=== PATIENT | male | born 1940 | race Caucasian/White ===

== ENCOUNTER 2023-07-06 17:27 | Emergency (ER) | payer OTHER ==
--- NOTE | 2023-07-06 18:06 | RAD REPORT ---
EXAM DESCRIPTION: RAD - Chest Single View - 07/06/2023 5:53 pm CLINICAL HISTORY: COUGH Chest pain. COMPARISON: No comparisons FINDINGS: Portable technique limits examination quality. Mild interstitial pulmonary edema is seen. The heart is mildly prominent. Sternotomy wires present. A ortic atherosclerosis. Right-sided PICC line has tip in the right atrium. IMPRESSION: Mild CHF.
[2023-07-06 18:25] LABS: Absolute Basophils 0.1 K/uL (0-0.5); Absolute Eosinophils 0.1 K/uL (0-0.5); Absolute Lymphocytes (CBC) 0.7 K/uL (0.7-4.9); Absolute Monocytes 0.8 K/uL (0.1-1.3); Basophils % 0.8 % (0-1.3); Eosinophils % 1.6 % (0-4.4); Hematocrit 33.4 % (39.6-49.0); Hemoglobin 11.5 g/dL (13.6-17.9); MCHC 34.4 g/dL (32.0-36.0); MCV 84.2 fL (80-100); MPV 6.9 fL (7.6-11.3); Monocytes % 11.6 % (3.3-12.3); Platelets 270 thou/uL (152-406); RBC Red Blood Cell Count 3.97 M/uL (4.33-5.43); Red Cell Distribution Width 15.5 % (12.1-15.2)
[2023-07-06] MEDS ORDERED: FAMOTIDINE 20 MG/2 ML VIAL IV ONE (18:33)
[2023-07-06] MEDS ORDERED: NA CHLORIDE 0.9% 100 ML ONE (18:33)
[2023-07-06 18:34] LABS: PT Prothrombin Time 17.6 SECONDS (9.5-12.5); Protime INR 1.62
[2023-07-06] MEDS ORDERED: NA CHLORIDE 0.9% 2,000 ML ONE (18:34)
[2023-07-06] MEDS ORDERED: PIPERACIL/TAZO 3.375 GM VIAL IV ONE (18:34)
[2023-07-06 18:39] LABS: SARS-CoV-2 Antigen CONTROL BLUE LINE VIS/BG OK; SARS-CoV-2 Antigen Rapid Res Negative (Negative)
[2023-07-06 18:45] LABS: Albumin 2.7 g/dL (3.4-5.0); Albumin/Globulin Ratio 0.5 (1.1-1.8); Anion Gap 11.1 mEq/L (5.0-15.0); Bilirubin Direct 1.1 mg/dL (0-0.2); Bilirubin Indirect, Calculated 0.7 mg/dL (0.2-0.8); Bilirubin Total 1.8 mg/dL (0.2-1.0); Globulin 5.6 g/dL (2.3-3.5); Potassium 4.1 mEq/L (3.5-5.1); Protein, Total 8.3 g/dL (6.4-8.2)
[2023-07-06 18:55] LABS: Troponin High Sensitivity 66.4 pg/mL (<58.9)
--- NOTE | 2023-07-06 19:20 | RAD REPORT ---
EXAM DESCRIPTION: US - Extrem Venous W Compress Esteban - 07/06/2023 7:05 pm CLINICAL HISTORY: PAIN Bilateral leg edema and swelling. COMPARISON: No comparisons TECHNIQUE: Real-time sonographic interrogation of the left and right lower extremity deep venous sys tems was performed. FINDINGS: Normal compressibility, flow augmentation, phasic flow and spontaneous flow is identified in both the left and right lower extremity deep venous systems. IMPRESSION: No sonographic evidence of left or right lower extremity deep venous thrombosis.
--- NOTE | 2023-07-06 19:40 | RAD REPORT ---
EXAM DESCRIPTION: CT - Chest For Pe Angio - 07/06/2023 7:31 pm CLINICAL HISTORY: Chest pain. Cough;Fever;PE COMPARISON: No comparisons TECHNIQUE: CT angiogram of the pulmonary arteries was performed with MIP. All CT scans are performed using dose optimization technique as appropriate and may include automated exposure control or mA/KV adjustment according to patient size. FINDINGS: No evidence of pulmonary thromboembolism. No acute aortic finding demonstrated. The lungs appear emphysematous with mild atelectasis in both lung bases. No significant pericardial or pleural fluid. Small hernia. No concerning bony finding. IMPRESSION: No evidence of pulmonary thromboembolism. COPD.
--- NOTE | 2023-07-06 19:42 | RAD REPORT ---
EXAM DESCRIPTION: CTAbdomen Pelvis W Contrast - 07/06/2023 7:31 pm CLINICAL HISTORY: Abdominal pain. ABD PAIN COMPARISON: Chest For Pe Angio dated 07/06/2023 TECHNIQUE: Biphasic CT imaging of the abdomen and pelvis was performed with 100 ml non-ionic IV cont rast. All CT scans are performed using dose optimization technique as appropriate and may include automated exposure control or mA/KV adjustment according to patient size. FINDINGS: The lung bases are clear.Small hiatal hernia. The liver, spleen, pancreas, adrenal glands and kidneys are within normal limits. Benign 21 mm left r enal cyst. Pigtail drain is present gallbladder fossa with very little fluid present. No bowel obstruction, free air, free fluid or abscess. Prominent sigmoid diverticulosis coli without diverticulitis. The appendix is normal. No evidence of significant lymphadenopathy. No suspicious bony findings. Mild lower lumbar degenerative IMPRESSION: No acute intra-abdominal or pelvic finding. Percutaneous drain is seen the gallbladder fossa with very little fluid present in the fossa. Sigmoid diverticulosis coli without diverticulitis there
--- NOTE | 2023-07-06 20:28 | EDPHYS ---
Physician Documentation [facility] Name: Harvey Byrd Age: 83 yrs Sex: Male : 1940 Arrival Date: 07/06/2023 Time: 17:27 Bed 9 Private MD: ED Physician Rancho Del Cid HPI: 07/05 17:43 This 83 yrs old Male presents to ER via EMS with complaints of Knee Pain, Hip ross Pain. 17:43 The patient or guardian reports decreased range of motion, pain. that occurred ross sustained from unknown reason, There is no obvious deformity. Historical: - Allergies: 17:34 No Known Allergies; cp4 - Immunization history:: Adult Immunizations up to date. - Infectious Disease History:: Denies. CDIFF, C. Auris, ESBL, MRSA (w/in 1 year), VRE (w/in 1 year), TB, . - Social history:: Smoking status: Patient denies any tobacco usage or history of. ROS: 17:45 Eyes: Negative for injury, pain, redness, and discharge, ENT: Negative for injury, ross pain, and discharge, Neck: Negative for injury, pain, and swelling, Cardiovascular: Negative for chest pain, palpitations, and edema, Respiratory: Negative for shortness of breath, cough, wheezing, and pleuritic chest pain, Back: Negative for injury and pain, : Negative for injury, bleeding, discharge, and swelling, Skin: Negative for injury, rash, and discoloration, Neuro: Negative for headache, weakness, numbness, tingling, and seizure, Psych: Negative for depression, anxiety, suicide ideation, homicidal ideation, and hallucinations, Allergy/Immunology: Negative for hives, rash, and allergies, Endocrine: Negative for neck swelling, polydipsia, polyuria, polyphagia, and marked weight changes, Hematologic/Lymphatic: Negative for swollen nodes, abnormal bleeding, and unusual bruising, 17:45 Constitutional: Positive for body aches, chills, fatigue, fever, 17:45 Abdomen/GI: Positive for abdominal pain, of the epigastric area and right upper quadrant, 17:45 MS/extremity: Positive for decreased range of motion, pain, swelling, tenderness, of the right leg, Exam: 17:46 Head/Face: Normocephalic, atraumatic. Eyes: Pupils equal round and reactive to light, ross extra-ocular motions intact. Lids and lashes normal. Conjunctiva and sclera are non-icteric and not injected. Cornea within normal limits. Periorbital areas with no swelling, redness, or edema. ENT: Nares patent. No nasal discharge, no septal abnormalities noted. Tympanic membranes are normal and external auditory canals are clear. Oropharynx with no redness, swelling, or masses, exudates, or evidence of obstruction, uvula midline. Mucous membranes moist. Neck: Trachea midline, no thyromegaly or masses palpated, and no cervical lymphadenopathy. Supple, full range of motion without nuchal rigidity, or vertebral point tenderness. No Meningismus. Chest/axilla: Normal chest wall appearance and motion. Nontender with no deformity. No lesions are appreciated. Cardiovascular: Regular rate and rhythm with a normal S1 and S2. No gallops, murmurs, or rubs. Normal PMI, no JVD. No pulse deficits. Respiratory: Lungs have equal breath sounds bilaterally, clear to auscultation and percussion. No rales, rhonchi or wheezes noted. No increased work of breathing, no retractions or nasal flaring. Back: No spinal tenderness. No costovertebral tenderness. Full range of motion. Male : Normal genitalia with no discharge or lesions. Skin: Warm, dry with normal turgor. Normal color with no rashes, no lesions, and no evidence of cellulitis. Neuro: Awake and alert, GCS 15, oriented to person, place, time, and situation. Cranial nerves II-XII grossly intact. Motor strength 5/5 in all extremities. Sensory grossly intact. Cerebellar exam normal. Normal gait. Psych: Awake, alert, with orientation to person, place and time. Behavior, mood, and affect are within normal limits. 17:46 Cardiovascular: Rate: bradycardic, actual rate is 54 bpm, Rhythm: regular, Pulses: Pulses are 4+ in bilateral radial, brachial, femoral, popliteal, posterior tibial and and dorsalis pedis arteries.. Heart sounds: normal, Edema: is not appreciated, JVD: is not appreciated, 17:46 Abdomen/GI: Inspection: abdomen appears normal, Bowel sounds: normal, Palpation: moderate abdominal tenderness, in the epigastric area, right upper quadrant and left upper quadrant, Liver: no appreciated palpable abnormalities, Hernia: not appreciated, 17:46 Musculoskeletal/extremity: ROM: limited active range of motion due to pain, limited passive range of motion due to pain, in the right leg, Circulation is intact in all extremities. Sensation intact. Compartment Syndrome exam of affected extremity: is normal. DVT Exam: negative Homans' sign noted on exam, no appreciated bluish discoloration, no erythema, pain, swelling, tenderness, increased warmth, 18:35 ECG was reviewed by the Attending Physician. ross 20:38 Musculoskeletal/extremity: Joints: painful range of motion, left knee not red, normal ross passive rom, no effusion, 21:48 Musculoskeletal/extremity: Weight bearing: is unable to bear weight, pain on rom ross appears to be in the right thigh, with some pain right hip and knee also with mild pain. Vital Signs: 17:32 BP 128 / 72; Pulse 54; Resp 18; Temp 99.4; Pulse Ox 96% ; Weight 108.86 kg; Height 5 cp4 ft. 11 in. ; 18:30 BP 138 / 91; Pulse 81; Resp 18; Pulse Ox 99% ; cp4 19:30 BP 114 / 59; Pulse 84; Resp 18; Pulse Ox 97% ; cp4 20:25 BP 130 / 68; Pulse 84; Resp 18; Pulse Ox 97% ; cp4 21:43 Temp 98.3; cp4 21:44 BP 121 / 72; Pulse 84; Resp 18; Pulse Ox 98% ; cp4 23:09 BP 133 / 58; Pulse 88; Resp 18; Temp 97.8(TE); Pulse Ox 98% ; vc1 17:32 Body Mass Index 33.47 (108.86 kg, 180.34 cm) cp4 [place] Coma Score: 17:46 Eye Response: spontaneous(4). Motor Response: obeys commands(6). Verbal Response: ross oriented(5). Total: 15. MDM: 17:31 Patient medically screened. ross 17:48 Differential diagnosis: contusion, viral Infection, bacterial infection, URI, ross bronchitis, pneumonia UTI. Data reviewed: vital signs, nurses notes, EMS record, lab test result(s), EKG, radiologic studies, CT scan, doppler, plain films. Consideration of Admission/Observation Escalation of care including admission/observation considered. I considered the following discharge prescriptions or medication management in the emergency department Medications were administered in the Emergency Department. See MAR. Test considered but Not performed: Ultrasound no abd usg. 07/05 17:40 Order name: Basic Metabolic Panel; Complete Time: 20:15 07/05 17:40 Order name: CBC with Diff; Complete Time: 20:15 07/05 17:40 Order name: LFT's; Complete Time: 20:15 07/05 17:40 Order name: Magnesium; Complete Time: 20:15 07/05 17:40 Order name: NT PRO-BNP; Complete Time: 20:15 07/05 17:40 Order name: PT-INR; Complete Time: 20:15 07/05 17:40 Order name: Troponin HS; Complete Time: 20:15 07/05 17:40 Order name: Lipase; Complete Time: 20:15 07/05 17:40 Order name: Blood Culture Adult (2) 07/05 17:40 Order name: Lactate w/ 2H reflex if indic.; Complete Time: 20:15 07/05 17:40 Order name: Flu; Complete Time: 20:15 07/05 17:40 Order name: SARS RAPID; Complete Time: 20:15 07/05 17:40 Order name: Urinalysis w/ reflexes; Complete Time: 20:46 07/05 17:40 Order name: XRAY Chest (1 view); Complete Time: 20:15 07/05 17:40 Order name: CT Chest For PE Angio; Complete Time: 20:15 07/05 17:40 Order name: CT Abd/Pelvis - IV Contrast Only; Complete Time: 20:15 07/05 17:40 Order name: US Extremity Venous W Compression Esteban; Complete Time: 20:15 07/05 21:35 Order name: Femur Right XRAY 07/05 17:40 Order name: Cardiac monitoring; Complete Time: 18:15 07/05 17:40 Order name: EKG - Nurse/Tech; Complete Time: 18:32 07/05 17:40 Order name: IV Saline Lock; Complete Time: 18:15 07/05 17:40 Order name: Labs collected and sent; Complete Time: 18:15 07/05 17:40 Order name: O2 Per Protocol; Complete Time: 18:15 07/05 17:40 Order name: O2 Sat Monitoring; Complete Time: 18:15 ross EC:35 Rate is 96 beats/min. Rhythm is regular. QRS [place] is Normal. RI interval is normal. QRS ross interval is normal. QT interval is prolonged at 530 msec. No Q waves. T waves are Normal. No ST changes noted. Clinical impression: NSR w/ Non-specific ST/T Changes and No evidence of ischemia. Interpreted by me. Reviewed by me. Administered Medications: 17:49 Not Given (Duplicate Order): [id number] mg PO once cp4 18:44 Drug: Piperacillin-Tazobactam IVPB 3.375 grams IVPB once over 60 mins; (mix in NS 100 cp4 mL) Route: IVPB; Infused Over: 60 mins; Site: left antecubital; 19:45 Follow up: Response: No adverse reaction; IV Status: Completed infusion cp4 18:44 Drug: NS 0.9% IV 1000 ml IV at 1 bolus Per protocol; 1000 mL bolus Route: IV; Rate: 1 cp4 bolus; Site: left antecubital; 20:22 Follow up: Response: No adverse reaction; IV Status: Completed infusion cp4 18:45 Drug: NS 0.9% IV 1000 ml IV at 1 bolus Per protocol; 1000 mL bolus Route: IV; Rate: 1 cp4 bolus; Site: left antecubital; 20:23 Follow up: Response: No adverse reaction; IV Status: Completed infusion cp4 18:45 Drug: Famotidine IVP 20 mg IVP once; dilute with 10 mL 0.9% NaCl; give over 2 minutes cp4 Route: IVP; Site: left antecubital; 20:23 Follow up: Response: No adverse reaction cp4 20:40 Drug: vancoMYCIN IVPB 1 grams IVPB once over 2 hrs Route: IVPB; Infused Over: 2 hrs; cp4 Site: left antecubital; 21:16 Drug: morphine IVP or IV 4 mg IVP once over 4 mins Route: IVP; Infused Over: 4 mins; cp4 Site: left antecubital; 21:16 Drug: Ondansetron IVP 4 mg IVP once; over 2 minutes Route: IVP; Site: left antecubital; cp4 21:43 Not Given (Duplicate Order; EMS gave 1G tylenol prior to arrivall): [id number] mg cp4 PO once 23:35 Drug: morphine IVP or IV 4 mg IVP once over 4 mins Route: IVP; Infused Over: 4 mins; vc1 Site: left antecubital; 23:35 Follow up: Response: Medication administered at discharge. 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 EDMS EDMS 17:41 17:40 CBC+H.LAB.BRZ ordered. EDMS EDMS 17:41 17:40 HEPATIC FUNCTION+C.LAB.BRZ ordered. EDMS EDMS 17:41 17:40 MAGNESIUM+C.LAB.BRZ ordered. EDMS EDMS 17:41 17:40 PROBNP+C.LAB.BRZ ordered. EDMS EDMS 17:41 17:40 PROTIME (+INR)+COAG.LAB.BRZ ordered. EDMS EDMS 17:41 17:40 Troponin High Sensitivity+C.LAB.BRZ ordered. EDMS EDMS 17:41 17:40 LIPASE+C.LAB.BRZ ordered. EDMS EDMS 17:41 17:40 BLOOD CULTURE*+BA.LAB.BRZ ordered. EDMS EDMS 17:41 17:40 LACTATE+C.LAB.BRZ ordered. EDMS EDMS 17:41 17:40 Influenza Screen (A \T\ B)+BA.LAB.BRZ ordered. EDMS EDMS 17:41 17:40 SARS-COV-2 Antigen Rapid+I.LAB.BRZ ordered. EDMS EDMS 17:41 17:40 Urinalysis+U.LAB.BRZ ordered. EDMS EDMS 17:41 17:41 Chest Single View+RAD.RAD.BRZ ordered. EDMS EDMS 17:41 17:41 Chest For PE Angio+CT.RAD.BRZ ordered. EDMS EDMS 17:41 17:41 Abdomen Pelvis W Con+CT.RAD.BRZ ordered. EDMS EDMS 17:41 17:41 Extrem Venous W Compression Esteban+US.RAD.BRZ ordered. EDMS EDMS 20:31 [facility] ross 20:44 20:31 to [facility] ross ross 21:12 20:44 to [facility] ross ross 23:35 23:31 Ondansetron IVP 4 mg IVP once; over 2 minutes ordered. sp4 vc1 23:36 21:12 to [facility] ross vc1
--- NOTE | 2023-07-06 20:28 | ER ---
Nurse's Notes [facility] Name: Harvey Byrd Age: 83 yrs Sex: Male : 1940 Arrival Date: 07/06/2023 Time: 17:27 Bed 9 Private MD: Diagnosis: Fever, unspecified;Pain in right leg-hip, knee;Epigastric abdominal tenderness-percutaneous drain gallbladder;Hypo-osmolality and hyponatremia;MCC (current) use of anticoagulants;Abnormal serum enzyme level, unspecified-elevated troponin Presentation: 07/05 17:32 Chief complaint: Patient states: right hip and knee pain that started last night. cp4 Coronavirus screen: Client denies travel out of the [place] in the last 14 days. Client indicates they have traveled out of the [place] in the last 14 days. At this time, unable to obtain information related to travel outside the [place] Ebola Screen: Patient negative for fever greater than or equal to 101.5 degrees Fahrenheit, and additional compatible Ebola Virus Disease symptoms Patient denies exposure to infectious person. Patient denies travel to an Ebola-affected area in the 21 days before illness onset. No symptoms or risks identified at this time. Initial Sepsis Screen: Does the patient meet any 2 criteria? No. Patient's initial sepsis screen is negative. Does the patient have a suspected source of infection? No. Patient's initial sepsis screen is negative. Risk Assessment: Do you want to hurt yourself or someone else? Patient reports no desire to harm self or others. Onset of symptoms was July 05, 2023. 17:32 Method Of Arrival: EMS: [facility] 17:32 Acuity: ROXY 3 cp4 Triage Assessment: 17:34 General: Appears uncomfortable, Behavior is calm, cooperative, appropriate for age. cp4 Pain: Complains of pain in right hip, right knee Pain currently is 5 out of 10 on a pain scale. Musculoskeletal: Reports pain in right hip, right knee. Historical: - Allergies: 17:34 No Known Allergies; cp4 - Immunization history:: Adult Immunizations up to date. - Infectious Disease History:: Denies. CDIFF, C. Auris, ESBL, MRSA (w/in 1 year), VRE (w/in 1 year), TB, . - Social history:: Smoking status: Patient denies any tobacco usage or history of. Screenin:36 [facility] ED Fall Risk Assessment (Adult) History of falling in the last 3 months, cp4 including since admission No falls in past 3 months (0 pts) Confusion or Disorientation No (0 pts) Intoxicated or Sedated No (0 pts) Impaired Gait No (0 pts) Mobility Assist Device Used No (0 pt) Altered Elimination No (0 pt) Score/Fall Risk Level 0 - 2 = Low Risk Oriented to surroundings, Maintained a safe environment, Assessed \T\ reinforced patient's understanding of fall precautions, Hourly rounding (assess needs \T\ fall precautionary measures) done. Abuse screen: Denies threats or abuse. Nutritional screening: No deficits noted. Tuberculosis screening: No symptoms or risk factors identified. Assessment: 17:36 Reassessment: No changes from previously documented assessment. cp4 23:06 General: Appears in no apparent distress. uncomfortable, Behavior is calm, cooperative, vc1 appropriate for age. Pain: Complains of pain in right leg and right upper quadrant. Neuro: Level of Consciousness is awake, alert, obeys commands, Oriented to person, place, time, situation, Appropriate for age. Cardiovascular: Capillary refill Patient's skin is warm and dry. Respiratory: Airway is patent Respiratory effort is even, unlabored, Respiratory pattern is regular, symmetrical. GI: gallbladder drain. : No deficits noted. No signs and/or symptoms were reported regarding the genitourinary system. EENT: No deficits noted. No signs and/or symptoms were reported regarding the EENT system. Derm: Skin is intact, is healthy with good turgor, Skin is dry. Musculoskeletal: Reports pain in right knee. 23:08 Reassessment: report given to ALYSSIA Ku at [facility]. vc1 Vital Signs: 17:32 BP 128 / 72; Pulse 54; Resp 18; Temp 99.4; Pulse Ox 96% ; Weight 108.86 kg; Height 5 cp4 ft. 11 in. ; 18:30 BP 138 / 91; Pulse 81; Resp 18; Pulse Ox 99% ; cp4 19:30 BP 114 / 59; Pulse 84; Resp 18; Pulse Ox 97% ; cp4 20:25 BP 130 / 68; Pulse 84; Resp 18; Pulse Ox 97% ; cp4 21:43 Temp 98.3; cp4 21:44 BP 121 / 72; Pulse 84; Resp 18; Pulse Ox 98% ; cp4 23:09 BP 133 / 58; Pulse 88; Resp 18; Temp 97.8(TE); Pulse Ox 98% ; vc1 17:32 Body Mass Index 33.47 (108.86 kg, 180.34 cm) cp4 [place] Coma Score: 17:46 Eye Response: spontaneous(4). Motor Response: obeys commands(6). Verbal Response: ross oriented(5). Total: 15. ED Course: 16:08 Initial lab(s) drawn, by me, sent to lab. First set of blood cultures drawn by me. cp4 17:30 Patient arrived in ED. cp4 17:31 Rancho Del Cid MD is Attending Physician. [facility] 17:31 Monse Jackson is Primary Nurse. cp4 17:34 Triage completed. cp4 17:34 Arm band placed on right wrist. Patient placed in an exam room, on a stretcher. cp4 17:36 Bed in low position. Call light in reach. Side rails up X2. cp4 17:55 XRAY Chest (1 view) In Process Unspecified. EDMS 18:14 Inserted saline lock: 20 gauge in left antecubital area, using aseptic technique. Blood cp4 collected. 18:15 Lactate w/ 2H reflex if indic. Sent. cp4 18:15 Blood Culture Adult (2) Sent. cp4 18:15 Lipase Sent. cp4 18:15 Basic Metabolic Panel Sent. cp4 18:15 CBC with Diff Sent. cp4 18:15 LFT's Sent. cp4 18:15 Magnesium Sent. cp4 18:15 NT PRO-BNP Sent. cp4 18:15 PT-INR Sent. cp4 18:15 Troponin HS Sent. cp4 18:31 EKG done, by ED staff, reviewed by Rancho Del Cid MD. cp4 18:54 Notified ED physician of a critical lab result(s). troponin 66.4. ap3 19:07 US Extremity Venous W Compression Esteban In Process Unspecified. EDMS 19:33 CT Chest For PE Angio In Process Unspecified. EDMS 19:33 CT Abd/Pelvis - IV Contrast Only In Process Unspecified. EDMS 20:39 Gall bladder tube. cp4 22:24 Femur Right XRAY In Process Unspecified. EDMS 23:36 Provided Education on: NPO. vc1 23:36 No provider procedures requiring assistance completed. Patient transferred, IV remains vc1 in place. Administered Medications: 17:49 Not Given (Duplicate Order): [id number] mg PO once cp4 18:44 Drug: Piperacillin-Tazobactam IVPB 3.375 grams IVPB once over 60 mins; (mix in NS 100 cp4 mL) Route: IVPB; Infused Over: 60 mins; Site: left antecubital; 19:45 Follow up: Response: No adverse reaction; IV Status: Completed infusion cp4 18:44 Drug: NS 0.9% IV 1000 ml IV at 1 bolus Per protocol; 1000 mL bolus Route: IV; Rate: 1 cp4 bolus; Site: left antecubital; 20:22 Follow up: Response: No adverse reaction; IV Status: Completed infusion cp4 18:45 Drug: NS 0.9% IV 1000 ml IV at 1 bolus Per protocol; 1000 mL bolus Route: IV; Rate: 1 cp4 bolus; Site: left antecubital; 20:23 Follow up: Response: No adverse reaction; IV Status: Completed infusion cp4 18:45 Drug: Famotidine IVP 20 mg IVP once; dilute with 10 mL 0.9% NaCl; give over 2 minutes cp4 Route: IVP; Site: left antecubital; 20:23 Follow up: Response: No adverse reaction cp4 20:40 Drug: vancoMYCIN IVPB 1 grams IVPB once over 2 hrs Route: IVPB; Infused Over: 2 hrs; cp4 Site: left antecubital; 21:16 Drug: morphine IVP or IV 4 mg IVP once over 4 mins Route: IVP; Infused Over: 4 mins; cp4 Site: left antecubital; 21:16 Drug: Ondansetron IVP 4 mg IVP once; over 2 minutes Route: IVP; Site: left antecubital; cp4 21:43 Not Given (Duplicate Order; EMS gave 1G tylenol prior to arrivall): [id number] mg cp4 PO once 23:35 Drug: morphine IVP or IV 4 mg IVP once over 4 mins Route: IVP; Infused Over: 4 mins; vc1 Site: left antecubital; 23:35 Follow up: Response: Medication administered at discharge. vc1 23:35 CANCELLED (pt transferredd): ondansetron 4 mg IVP once; over 2 minutes vc1 Medication: 17:36 VIS not applicable for this client. cp4 Intake: 20:39 Tubes: 300ml (); Total: 300ml. cp4 Outcome: 20:27 ER care complete, transfer ordered by MD. hawkins 23:36 Transferred by ground EMS to other acute care facility: [facility]. Transfer vc1 form completed. X-rays sent w/ patient. 23:36 Condition: stable 23:36 Instructed on the need for transfer, 23:36 Patient left the ED. vc1 Signatures: Dispatcher [employer] EDMS Rancho Del Cid MD MD cha Prokisch, Amanda RN RN ap3 Ruba Boswell RN RN vc1 Monse Jackson cp4
[2023-07-06] MEDS ORDERED: VANCOMYCIN 1 GM/VIAL ONE (20:30)
[2023-07-06] MEDS ORDERED: NA CHLORIDE 0.9% 250 ML ONE (20:30)
[2023-07-06 20:44] LABS: Specific Gravity 1.025 (1.005-1.030); Sqamous Epithelial None Seen /HPF (None Seen); Urine Bacteria <20 /HPF (<20); Urine Bilirubin NEGATIVE (Negative); Urine Blood 2+ (Negative); Urine Clarity Extremely Turbid (Clear); Urine Color Yellow (Yellow); Urine Culture Reflex Order NOT NEEDED; Urine Glucose NEGATIVE (Negative); Urine Ketones NEGATIVE (Negative); Urine Microscopic Reflex YN ORDER UMIC; Urine Mucus 1+ /HPF (None Seen); Urine Nitrite NEGATIVE (Negative); Urine Protein 1+ (Negative); Urine RBC <5 /HPF (None Seen); Urine Urobilinogen Normal (Normal)
[2023-07-06] MEDS ORDERED: ONDANSETRON 4 MG/2 ML VIAL ONE (21:09)
[2023-07-06] MEDS ORDERED: MORPHINE 4 MG/ML SYR ONE ×2 (21:10→23:32)
--- NOTE | 2023-07-06 22:30 | RAD REPORT ---
EXAM DESCRIPTION: RAD - Femur Right - 07/06/2023 10:22 pm CLINICAL HISTORY: PAIN COMPARISON: No comparisons FINDINGS: Diffuse osteopenia is seen. Right total knee arthroplasty is noted. Atherosclerosis. No ac lizeth fracture or dislocation.
[2023-07-06 23:49] VITALS: BP 133/58; TEMP 97.8; O2SAT 98
--- NOTE | 2023-07-07 13:08 | EKG ---
Test Date: 2023-07-06 Test Time: 18:29:04 [employer] Interpretive Specialist: ALEX MEASUREMENT RESULTS: Intervals: Rate: 96 WI: 140 QRSD: 80 QT: 420 QTc: 530 Krypton: P: 26 WI: 140 QRS: -6 T: -23 INTERPRETIVE STATEMENTS: Sinus rhythm and premature ventricular complexes or fusion complexes Left ventricular hypertrophy with repolarization abnormality Prolonged QT Abnormal ECG Compared to ECG 07/06/2023 18:25:13 Fusion complex(es) now present Left ventricular hypertrophy now present Early repolarization now present ST (T wave) deviation no longer present Possible ischemia no longer present Electronically Signed On 07-07-23 13:05:41 CDT by Maxi Painting
--- NOTE | 2023-07-07 13:08 | EKG ---
Test Date: 2023-07-06 Test Time: 18:25:13 Job Press Operator: ALEX MEASUREMENT RESULTS: Intervals: Rate: 98 SC: 132 QRSD: 86 QT: 422 QTc: 538 Cuddy: P: 171 SC: 132 QRS: 206 T: 234 INTERPRETIVE STATEMENTS: Suspect arm lead reversal, interpretation assumes no reversal Unusual P axis, possible ectopic atrial rhythm with frequent premature ventricular complexes in a pattern of bigeminy ST & T wave abnormality, consider inferolateral ischemia Prolonged QT Abnormal ECG No previous ECG available for comparison Electronically Signed On 07-07-23 13:05:48 CDT by Maxi Painting
== END 2023-07-06 23:36 | disposition short-term general hospital (02) ==
LOC: ER 17:27
DX: R50.9 Fever, unspecified (principal); M25.561 Pain in right knee; M25.551 Pain in right hip; R10.816 Epigastric abdominal tenderness; Z97.8 Presence of other specified devices; E87.1 Hypo-osmolality and hyponatremia; R79.89 Other specified abnormal findings of blood chemistry; Z79.01 Long term (current) use of anticoagulants; Z11.52 Encounter for screening for COVID-19
CPT/HCPCS: 93005 ×2; 87040 ×2; 85025; 81001; 80048; 36415; 83735; 85610; 80076; 83605; 84484; 83690; 83880; 87804 ×2; 71275; 74177; 71045; 73552; 93970; 87811; Q9967; J2543; J2405; J7050; J7030; 96361; 96365; 96375; 99285